=== PATIENT | female | born 1950 | race Two or more races ===

== ENCOUNTER 2021-01-07 05:30 | Day surgery (SDC) | payer OTHER ==
[~2021-01-07 05:30] MED LIST: ALENDRONATE SOD70 MG PO; CHILDREN'S ASPI81 MG PO; GABAPENTIN600 MG PO; LEVO-T50 MCG PO; LIPITOR40 M1 PO; MELOXICAM15 MG PO; NORVASC5 MG PO; ZANAFLEX4 M1 PO
[2021-01-07] MEDS ORDERED: MACROBID 100 M100 MG PO (10:55)
[2021-01-07] MEDS ORDERED: ULTRACET PO (10:56)
== END 2021-01-07 16:50 | disposition home or self-care (01) ==
LOC: CIR.AMB 05:30
PROVIDERS: ATTEND Obstetrics & Gynecology Gynecology
DX: N81.2 Incomplete uterovaginal prolapse (principal); N76.1 Subacute and chronic vaginitis; Z20.822 Contact with and (suspected) exposure to COVID-19